=== PATIENT | female | born 1985 | race Caucasian/White ===

== ENCOUNTER 2017-12-06 07:02 | Inpatient (IN) | payer OTHER ==
[2017-12-06] VITALS (26 sets, daily range): BP systolic 101–140; BP diastolic 56–83
[~2017-12-06] VITALS: Ht 167.6 cm; Wt 81.3 kg
[~2017-12-06 07:02] MED LIST: BENTYL20 MG PO; ENDOCET 5-3251 EACH PO; Ferrous Fumarate PO; IRON45 MG PO; Motrin PO; PERCOCET 5/31 TABLET PO; PROMETHAZINE12.5 M1 PO; PROZAC10 MG PO; PROzac PO; Percocet 5/325,Endoc PO; TRI-SPRINTEC1 EACH PO; ULTRAM50 MG PO; ZANTAC150 MG PO; ZOFRAN4 MG PO; [UNRECOGNIZED DRUG - OTHER]
[2017-12-06] MEDS ORDERED: CHILD ASPIRIN81 M1 PO (08:22)
[2017-12-06] MEDS ORDERED: PRENATAL TABLE1 EAC3 PO (08:22)
[2017-12-06 09:03] LABS: BASOPHIL (%) 0.5 % (0-1); BASOPHIL COUNT 0.1 K/uL (0-0.1); EOSINOPHIL (%) 1.3 % (0-5); EOSINOPHIL COUNT 0.1 K/uL (0-0.3); HEMATOCRIT 32.9 % (36.0-46.0); HEMOGLOBIN 11.1 G/DL (11.9-15.5); IMMATURE GRANULOCYTE (%) 0.4 % (0.0-0.7); LYMPHOCYTE (%) 22.9 % (15-42); LYMPHOCYTE COUNT 2.2 K/uL (1.0-2.8); MCH 28.8 PG (29.0-34.0); MCHC 33.7 G/DL (30.0-36.0); MCV 85.5 FL (83-99); MONOCYTE (%) 4.8 % (3-12); MONOCYTE COUNT 0.5 K/uL (0-0.8); NEUTROPHIL (%) 70.1 % (45-76); NEUTROPHIL COUNT 6.6 K/uL (1.8-6.4); PLATELET COUNT 236 K/uL (156-360); RBC DIS.WIDTH-CV 12.1 % (11.8-14.6); RBC DIS.WIDTH-SD 37.2 % (39-53); RED BLOOD COUNT 3.85 M/uL (3.80-5.20); WHITE BLOOD COUNT 9.4 K/uL (4.1-10.2)
[2017-12-06 09:40] LABS: AMPHETAMINE NEGATIVE (500 ng/mL); BARBITURATES NEGATIVE (200 ng/mL); BENZODIAZEPINES NEGATIVE (150 ng/mL); BUPRENORPHINE NEGATIVE (10 ng/mL); COCAINE NEGATIVE (150 ng/mL); METHADONE NEGATIVE (200 ng/mL); METHAMPHETAMINE NEGATIVE (500 ng/mL); OPIATES (MORPHINE) NEGATIVE (100 ng/mL); OXYCODONE NEGATIVE (100 ng/mL); PHENCYCLIDINE NEGATIVE (25 ng/mL); PROPOXYPHENE NEGATIVE (300 ng/mL); THC CANNABINOIDS NEGATIVE (50 ng/mL); TRICYCLIC ANTIDEPRESSANTS NEGATIVE (300 ng/mL)
[2017-12-06] MEDS ORDERED: IBUPROFEN800 MG PO (16:54)
[2017-12-07 07:39] VITALS: BP 116/71
[2017-12-07 14:22] VITALS: BP 122/69
== END 2017-12-07 18:45 | disposition home or self-care (01) | DRG 775 ==
LOC: LDRP-OP 07:02 → 2WEST 07:03 → LDRP-OP 07:42 → 2WEST 15:56 → LDRP-OP 01-12 13:14
PROVIDERS: Midwife
PROC: 10907ZC Drainage of Amniotic Fluid, Therapeutic from Products of Conception, Via Natural or Artificial Opening (ICD-10-PCS; principal; 2017-12-06)
PROC: 10E0XZZ Delivery of Products of Conception, External Approach (ICD-10-PCS; principal; 2017-12-06)
PROC: 3E0R3BZ Introduction of Anesthetic Agent into Spinal Canal, Percutaneous Approach (ICD-10-PCS; 2017-12-06)
PROC: 00HU33Z Insertion of Infusion Device into Spinal Canal, Percutaneous Approach (ICD-10-PCS; 2017-12-06)
PROC: 3E033VJ Introduction of Other Hormone into Peripheral Vein, Percutaneous Approach (ICD-10-PCS; 2017-12-06)
PROC: 0UQGXZZ Repair Vagina, External Approach (ICD-10-PCS; 2017-12-06)
DX: O71.4 Obstetric high vaginal laceration alone (principal); Z3A.39 39 weeks gestation of pregnancy; Z37.0 Single live birth; Z79.82 Long term (current) use of aspirin
CPT/HCPCS: 85025; C1755; J2405; J3010; J7120